=== PATIENT | female | born 1935 | race Caucasian/White ===

== ENCOUNTER 2021-06-04 07:20 | Day surgery (SDC) | payer OTHER, SELFPAY ==
[~2021-06-04] VITALS: Ht 157.5 cm; Wt 47.6 kg
[2021-06-04] MEDS ORDERED: fentaNYL citrate 0.05 MG/ML VIAL ONE (08:58)
[2021-06-04] MEDS ORDERED: diphenhydrAMINE 50 MG/ML VIAL ONE (08:58)
[2021-06-04] MEDS ORDERED: MIDAZOLAM 5 MG/5 ML VIAL ONE (08:58)
[2021-06-04] MEDS ORDERED: LIDOCAINE 2% 100 MG/5 ML UJET TP ONE ×2 (08:58→09:35)
[2021-06-04] MEDS ORDERED: MIDAZOLAM 2 MG/2 ML VIAL IVP ONE (09:35)
[2021-06-04] MEDS ORDERED: fentaNYL citrate 0.05 MG/ML VIAL IVP ONE (09:35)
== END 2021-06-04 10:16 | disposition home or self-care (01) ==
LOC: MDS 07:20 → MMU 07:21 → MDS 10:16
PROVIDERS: ATTEND Internal Medicine Gastroenterology
DX: K52.9 Noninfective gastroenteritis and colitis, unspecified (principal); K63.5 Polyp of colon; I10 Essential (primary) hypertension; F41.9 Anxiety disorder, unspecified; F32.9 Major depressive disorder, single episode, unspecified; Z90.49 Acquired absence of other specified parts of digestive tract; Z79.899 Other long term (current) drug therapy; Z20.822 Contact with and (suspected) exposure to COVID-19
CPT/HCPCS: 45380; 45385; 87426; J2250; J3010; J1200